=== PATIENT | male | born 1965 | race Caucasian/White ===

== ENCOUNTER 2018-10-03 09:00 | Inpatient (IN) | payer OTHER ==
[~2018-10-03] VITALS: Ht 162.6 cm; Wt 99.8 kg
[2018-10-03 10:14] LABS: EOSINOPHILS # (AUTO) 0.2 K/uL (0.0-0.7); HEMOGLOBIN 14.2 g/dL (12.5-16.3); LYMPHOCYTES # (AUTO) 0.6 K/uL (20.0-40.0); MONOCYTES # (AUTO) 0.3 K/uL (2.0-10.0); NEUTROPHILS # (AUTO) 1.2 K/uL (1.8-8.9)
[2018-10-03 10:18] LABS: BASOPHILS % (AUTO) 0.9 % (0.0-2.0); EOSINOPHILS % (AUTO) 10.3 % (0.0-7.0); HEMATOCRIT 40.1 % (36.7-47.1); LYMPHOCYTES % (AUTO) 24.6 % (20.5-51.5); MEAN CORPUSCULAR HEMOGLOBIN 33.3 uug (23.8-33.4); MEAN CORPUSCULAR HGB CONC 36 g/dL (32.5-36.3); MEAN CORPUSCULAR VOLUME 93.7 fL (73.0-96.2); MONOCYTES % (AUTO) 13.7 % (0.0-11.0); NEUTROPHILS % (AUTO) 50.5 % (38.5-71.5); RED BLOOD CELL COUNT(AUTO) 4.28 MIL/uL (4.06-5.63)
[2018-10-03 10:20] LABS: PLATELET COUNT (AUTO) 44 K/uL (152-348); WHITE BLOOD COUNT (AUTO) 2.3 K/uL (3.6-10.2)
[2018-10-03 10:22] LABS: CREATININE 0.7 mg/dL (0.6-1.3); POTASSIUM 3.9 mmol/L (3.5-5.1)
[2018-10-03 10:35] LABS: BILIRUBIN,DIRECT 0.3 mg/dL (0.0-0.2); BILIRUBIN,TOTAL 0.9 mg/dL (0.2-1.0); TOTAL PROTEIN, SERUM 6.8 g/dL (6.4-8.2)
[2018-10-03] MEDS ORDERED: FOLI1TAB16 PO (11:29)
[2018-10-03] MEDS ORDERED: CYAN10009 PO (11:29)
[2018-10-03] MEDS ORDERED: FERR325T28 PO (11:29)
[2018-10-03] MEDS ORDERED: THIA100T13 PO (11:29)
[2018-10-03] MEDS ORDERED: QUET25TA PO (11:29)
[2018-10-03] MEDS ORDERED: POLY15DR57 OP (11:29)
[2018-10-03] MEDS ORDERED: RIFA550T PO (11:29)
[2018-10-03] MEDS ORDERED: LEVE750T10 PO (11:29)
[2018-10-03] MEDS ORDERED: OMEP40CA37 PO (11:29)
[2018-10-03] MEDS ORDERED: LACT10SO PO (11:29)
[2018-10-03] MEDS ORDERED: ACET325T53 PO (11:29)
[2018-10-03] MEDS ORDERED: QUET50TA PO (11:29)
[2018-10-03] MEDS ORDERED: TAMS-3 PO (11:29)
[2018-10-03] MEDS ORDERED: CEFTRIAXONE 1 G in IV DEXTROSE 5% 50 ML IV ONE (11:30)
[2018-10-03] MEDS ORDERED: AZITHROMYCIN IV 500 MG in IV DEXTROSE 5% 250 ML IV ONE (11:30)
[2018-10-03] MEDS ORDERED: AZITHROMYCIN 500 MG VIAL IV ONE (11:46)
[2018-10-03] MEDS ORDERED: CEFTRIAXONE 1 G VIAL ONE (11:46)
[2018-10-03 11:49] LABS: *BILIRUBIN,URIN NEGATIVE (NEGATIVE); *BLOOD, URINE NEGATIVE (NEGATIVE); *CLARITY,URINE CLEAR (CLEAR); *COLOR,URINE YELLOW (YELLOW); *KETONES,URINE NEGATIVE (NEGATIVE); *UROBILINOGEN,URINE 0.2 E.U./dl (NORMAL); LEUKOCYTE ESTERASE ,URINE NEGATIVE (NEGATIVE); NITRITE, URINE NEGATIVE (NEGATIVE); UGLUCOSE NEGATIVE (NEGATIVE)
[2018-10-03 12:02] LABS: BACTERIA,URINE NONE SEEN /HPF (NONE SEEN); RBC,URINE 0-3 /HPF (0-3); SQUAMOUS EPITHELIAL CELL,UR FEW /HPF (NONE SEEN); WBC,URINE 0-3 /HPF (0-3)
[2018-10-03 12:03] LABS: MUCUS,URINE NONE SEEN /LPF (0-FEW)
[2018-10-03 12:30] LABS: BAND % (MANUAL) 2 % (0-10); EOSINOPHILS % (MANUAL) 11 % (0-8); LYMPHOCYTES % (MANUAL) 31 % (20-40); MONOCYTES % (MANUAL) 8 % (2-10); NEUTROPHILS % (MANUAL) 46 % (42-75)
[2018-10-03 12:35] LABS: REACTIVE LYMPHOCYTES 2 % (0-0)
[2018-10-03] MEDS ORDERED: ONDANSETRON 4 MG/2 ML VIAL IV PRN (13:00)
[2018-10-03] MEDS ORDERED: MAGNESIUM HYDROXIDE 30 ML LIQUID UDC PO PRN (13:00)
[2018-10-03] MEDS ORDERED: ACETAMINOPHEN 325 MG TABLET PO PRN (13:00)
[2018-10-03] MEDS ORDERED: Z GUARD REMEDY PASTE 57 GM TUBE TOP PRN (13:00)
[2018-10-03] MEDS: IV NS 1000 ML 1,000 ML IV PRN (14:01)
[2018-10-03] MEDS ORDERED: PIPERACILLIN SODIUM/TAZOBACTAM 4.5 G in IV DEXTROSE 5% 50 ML IV ONE (14:30)
[2018-10-03 16:30] VITALS: BP 123/76
[2018-10-03] MEDS: VANCOMYCIN IV 1,500 MG in IV DEXTROSE 5% 500 ML IV SCH (16:56)
[2018-10-03] MEDS: PIPERACILLIN SODIUM/TAZOBACTAM 4.5 G in IV DEXTROSE 5% 50 ML IV SCH (21:28)
[2018-10-03] MEDS ORDERED: POLYVINYL ALCOHOL OPHT DROPS 15 ML BOTTLE OP PRN (22:45)
[2018-10-03] MEDS: CYANOCOBALAMIN 1,000 MCG TABLET PO SCH (23:38)
[2018-10-03] MEDS: LEVETIRACETAM 500 MG TABLET PO SCH (23:38)
[2018-10-04] MEDS: VANCOMYCIN IV 1,500 MG in IV DEXTROSE 5% 500 ML IV SCH ×3 (01:29→21:49)
[2018-10-04] MEDS: PIPERACILLIN SODIUM/TAZOBACTAM 4.5 G in IV DEXTROSE 5% 50 ML IV SCH ×3 (05:33→23:44)
[2018-10-04 07:02] LABS: BILIRUBIN,TOTAL 1.4 mg/dL (0.2-1.0); CREATININE 0.8 mg/dL (0.6-1.3); MAGNESIUM 1.8 mg/dL (1.8-2.4); PHOSPHOROUS 3.9 mg/dL (2.5-4.9); POTASSIUM 3.3 mmol/L (3.5-5.1); TOTAL PROTEIN, SERUM 6.3 g/dL (6.4-8.2)
[2018-10-04 07:17] LABS: HEMOGLOBIN 12.9 g/dL (12.5-16.3); LYMPHOCYTES # (AUTO) 0.5 K/uL (20.0-40.0); MEAN CORPUSCULAR VOLUME 90.9 fL (73.0-96.2); MONOCYTES # (AUTO) 0.3 K/uL (2.0-10.0); NEUTROPHILS # (AUTO) 1.4 K/uL (1.8-8.9)
[2018-10-04 07:19] LABS: BASOPHILS % (AUTO) 0.6 % (0.0-2.0); EOSINOPHILS # (AUTO) 0.2 K/uL (0.0-0.7); HEMATOCRIT 35.5 % (36.7-47.1); LYMPHOCYTES % (AUTO) 21.6 % (20.5-51.5); MEAN CORPUSCULAR HGB CONC 36 g/dL (32.5-36.3); MONOCYTES % (AUTO) 10.4 % (0.0-11.0); NEUTROPHILS % (AUTO) 57.4 % (38.5-71.5); RED BLOOD CELL COUNT(AUTO) 3.91 MIL/uL (4.06-5.63); WHITE BLOOD COUNT (AUTO) 2.5 K/uL (3.6-10.2)
[2018-10-04 07:23] LABS: PLATELET COUNT (AUTO) 48 K/uL (152-348)
[2018-10-04] MEDS: FOLIC ACID 1 MG TABLET PO SCH (08:45)
[2018-10-04] MEDS: THIAMINE HCL 100 MG TABLET PO SCH ×2 (08:45→16:35)
[2018-10-04] MEDS: LACTULOSE 20 G/30 ML LIQUID UDC PO SCH ×3 (08:45→16:34)
[2018-10-04] MEDS: FERROUS SULFATE 325 MG TABEC PO SCH ×2 (08:45→16:35)
[2018-10-04] MEDS: CYANOCOBALAMIN 1,000 MCG TABLET PO SCH (08:45)
[2018-10-04] MEDS: QUETIAPINE FUMARATE 25 MG TABLET PO SCH ×2 (08:45→20:59)
[2018-10-04] MEDS: LEVETIRACETAM 500 MG TABLET PO SCH ×2 (08:45→16:34)
[2018-10-04] MEDS: RIFAXIMIN 550 MG TABLET PO SCH ×3 (09:00→16:34)
[2018-10-04 09:33] LABS: BAND % (MANUAL) 2 % (0-10); EOSINOPHILS % (MANUAL) 8 % (0-8); LYMPHOCYTES % (MANUAL) 33 % (20-40); MONOCYTES % (MANUAL) 6 % (2-10); NEUTROPHILS % (MANUAL) 50 % (42-75); REACTIVE LYMPHOCYTES 1 % (0-0)
[2018-10-04] MEDS: IV NS 1000 ML 1,000 ML IV PRN (10:42)
[2018-10-04] MEDS ORDERED: POTASSIUM CHLORIDE 20 MEQ TAB.PRT.SR PO ONE (11:15)
[2018-10-04] MEDS ORDERED: LORAZEPAM 2 MG/1 ML VIAL IV PRN (12:15)
[2018-10-04] MEDS ORDERED: LORAZEPAM 2 MG/1 ML VIAL IV ONE (12:15)
[2018-10-04 15:00] VITALS: BP 114/64
[2018-10-04 19:00] VITALS: BP 107/64
[2018-10-04] MEDS: TAMSULOSIN HCL 0.4 MG CAP.SR.24H PO SCH (20:58)
[2018-10-05 04:00] VITALS: BP 99/50
[2018-10-05] MEDS: PIPERACILLIN SODIUM/TAZOBACTAM 4.5 G in IV DEXTROSE 5% 50 ML IV SCH ×3 (05:03→21:01)
[2018-10-05] MEDS: VANCOMYCIN IV 1,500 MG in IV DEXTROSE 5% 500 ML IV SCH ×2 (06:00→17:03)
[2018-10-05 06:37] LABS: EOSINOPHILS # (AUTO) 0.2 K/uL (0.0-0.7); HEMATOCRIT 36.2 % (36.7-47.1); LYMPHOCYTES # (AUTO) 0.5 K/uL (20.0-40.0); MONOCYTES # (AUTO) 0.2 K/uL (2.0-10.0)
[2018-10-05 06:40] LABS: EOSINOPHILS % (AUTO) 9.9 % (0.0-7.0); HEMOGLOBIN 12.9 g/dL (12.5-16.3); LYMPHOCYTES % (AUTO) 27.3 % (20.5-51.5); MEAN CORPUSCULAR HEMOGLOBIN 32.4 uug (23.8-33.4); MEAN CORPUSCULAR HGB CONC 36 g/dL (32.5-36.3); MEAN CORPUSCULAR VOLUME 91.3 fL (73.0-96.2); MONOCYTES % (AUTO) 11.7 % (0.0-11.0); NEUTROPHILS % (AUTO) 50.1 % (38.5-71.5); RED BLOOD CELL COUNT(AUTO) 3.97 MIL/uL (4.06-5.63)
[2018-10-05 06:48] LABS: CREATININE 0.9 mg/dL (0.6-1.3); POTASSIUM 3.8 mmol/L (3.5-5.1)
[2018-10-05 06:57] LABS: PLATELET COUNT (AUTO) 48 K/uL (152-348); WHITE BLOOD COUNT (AUTO) 1.9 K/uL (3.6-10.2)
[2018-10-05] MEDS: LEVETIRACETAM 500 MG TABLET PO SCH ×2 (08:31→17:02)
[2018-10-05] MEDS: LACTULOSE 20 G/30 ML LIQUID UDC PO SCH ×3 (08:31→17:02)
[2018-10-05] MEDS: FERROUS SULFATE 325 MG TABEC PO SCH ×2 (08:31→17:02)
[2018-10-05] MEDS: THIAMINE HCL 100 MG TABLET PO SCH ×2 (08:32→17:02)
[2018-10-05] MEDS: QUETIAPINE FUMARATE 25 MG TABLET PO SCH ×2 (08:32→20:51)
[2018-10-05] MEDS: FOLIC ACID 1 MG TABLET PO SCH ×2 (08:32→09:00)
[2018-10-05] MEDS: CYANOCOBALAMIN 1,000 MCG TABLET PO SCH (08:34)
[2018-10-05] MEDS: RIFAXIMIN 550 MG TABLET PO SCH ×3 (09:00→17:02)
[2018-10-05 09:27] LABS: BAND % (MANUAL) 3 % (0-10); EOSINOPHILS % (MANUAL) 6 % (0-8); LYMPHOCYTES % (MANUAL) 24 % (20-40); MONOCYTES % (MANUAL) 12 % (2-10); NEUTROPHILS % (MANUAL) 55 % (42-75)
[2018-10-05] MEDS: IV NS 1000 ML 1,000 ML IV PRN (10:03)
[2018-10-05 12:00] VITALS: BP 122/77
[2018-10-05 16:00] VITALS: BP 119/61
[2018-10-05] MEDS ORDERED: TBO-FILGRASTIM 480 MCG/0.8 ML SYRINGE SQ SCH (19:15)
[2018-10-05 19:45] VITALS: BP 111/56
[2018-10-05] MEDS ORDERED: HALOPERIDOL LACTATE 5 MG/1 ML VIAL IM PRN (20:45)
[2018-10-05] MEDS: TAMSULOSIN HCL 0.4 MG CAP.SR.24H PO SCH (20:51)
[2018-10-06] MEDS: VANCOMYCIN IV 1,500 MG in IV DEXTROSE 5% 500 ML IV SCH ×3 (03:12→22:32)
[2018-10-06 04:00] VITALS: BP 102/63
[2018-10-06] MEDS: PIPERACILLIN SODIUM/TAZOBACTAM 4.5 G in IV DEXTROSE 5% 50 ML IV SCH ×3 (06:04→22:19)
[2018-10-06 06:59] LABS: EOSINOPHILS # (AUTO) 0.2 K/uL (0.0-0.7); LYMPHOCYTES # (AUTO) 0.6 K/uL (20.0-40.0); MONOCYTES # (AUTO) 0.5 K/uL (2.0-10.0)
[2018-10-06 07:01] LABS: BASOPHILS % (AUTO) 0.3 % (0.0-2.0); EOSINOPHILS % (AUTO) 1.6 % (0.0-7.0); HEMATOCRIT 37.3 % (36.7-47.1); HEMOGLOBIN 13.4 g/dL (12.5-16.3); LYMPHOCYTES % (AUTO) 5.5 % (20.5-51.5); MEAN CORPUSCULAR HEMOGLOBIN 32.6 uug (23.8-33.4); MEAN CORPUSCULAR HGB CONC 36 g/dL (32.5-36.3); MEAN CORPUSCULAR VOLUME 90.5 fL (73.0-96.2); MONOCYTES % (AUTO) 4.2 % (0.0-11.0); NEUTROPHILS # (AUTO) 10.5 K/uL (1.8-8.9); NEUTROPHILS % (AUTO) 88.4 % (38.5-71.5); RED BLOOD CELL COUNT(AUTO) 4.12 MIL/uL (4.06-5.63); WHITE BLOOD COUNT (AUTO) 11.8 K/uL (3.6-10.2)
[2018-10-06 07:07] LABS: PLATELET COUNT (AUTO) 41 K/uL (152-348)
[2018-10-06 07:14] LABS: CREATININE 0.9 mg/dL (0.6-1.3); POTASSIUM 3.5 mmol/L (3.5-5.1)
[2018-10-06 07:24] LABS: BAND % (MANUAL) 7 % (0-10); LYMPHOCYTES % (MANUAL) 9 % (20-40); MONOCYTES % (MANUAL) 6 % (2-10); NEUTROPHILS % (MANUAL) 78 % (42-75)
[2018-10-06 08:06] LABS: *IMMUNOGLOBULIN G, SERUM 937 mg/dL (700-1600); IMMUNOGLOBULIN A, SERUM 254 mg/dL (90-386); IMMUNOGLOBULIN M, SERUM 102 mg/dL (20-172)
[2018-10-06] MEDS: FOLIC ACID 1 MG TABLET PO SCH ×2 (08:33→08:35)
[2018-10-06] MEDS: CYANOCOBALAMIN 1,000 MCG TABLET PO SCH (08:33)
[2018-10-06] MEDS: RIFAXIMIN 550 MG TABLET PO SCH ×2 (08:33→16:27)
[2018-10-06] MEDS: LACTULOSE 20 G/30 ML LIQUID UDC PO SCH ×3 (08:33→16:28)
[2018-10-06] MEDS: FERROUS SULFATE 325 MG TABEC PO SCH ×2 (08:34→17:04)
[2018-10-06] MEDS: THIAMINE HCL 100 MG TABLET PO SCH ×2 (08:34→16:27)
[2018-10-06] MEDS: QUETIAPINE FUMARATE 25 MG TABLET PO SCH ×2 (08:34→20:26)
[2018-10-06] MEDS: LEVETIRACETAM 500 MG TABLET PO SCH ×2 (08:35→16:27)
[2018-10-06] MEDS ORDERED: TBO-FILGRASTIM 480 MCG/0.8 ML SYRINGE SQ SCH (09:00)
[2018-10-06 12:44] VITALS: BP 103/61
[2018-10-06] MEDS: IV NS 1000 ML 1,000 ML IV PRN (14:11)
[2018-10-06 15:09] LABS: A/G RATIO 1.3 (0.7-1.7); ALBUMIN 3.3 g/dL (2.9-4.4); ALPHA-1-GLOBULIN 0.2 g/dL (0.0-0.4); ALPHA-2-GLOBULIN 0.5 g/dL (0.4-1.0); BETA GLOBULIN 0.8 g/dL (0.7-1.3); GLOBULIN, TOTAL 2.5 g/dL (2.2-3.9); M-SPIKE Not Observed g/dL (Not Observed)
[2018-10-06 16:00] VITALS: BP 106/51
[2018-10-06 20:00] VITALS: BP 105/47
[2018-10-06] MEDS: CULTURELLE CAPSULE PO SCH (20:27)
[2018-10-06] MEDS: TAMSULOSIN HCL 0.4 MG CAP.SR.24H PO SCH (20:27)
[2018-10-07 04:00] VITALS: BP 110/54
[2018-10-07] MEDS: PIPERACILLIN SODIUM/TAZOBACTAM 4.5 G in IV DEXTROSE 5% 50 ML IV SCH ×2 (05:07→14:00)
[2018-10-07 07:30] LABS: BASOPHILS % (AUTO) 0.3 % (0.0-2.0); EOSINOPHILS # (AUTO) 0.2 K/uL (0.0-0.7); LYMPHOCYTES # (AUTO) 0.7 K/uL (20.0-40.0); MONOCYTES # (AUTO) 0.3 K/uL (2.0-10.0); NEUTROPHILS # (AUTO) 7.2 K/uL (1.8-8.9); WHITE BLOOD COUNT (AUTO) 8.4 K/uL (3.6-10.2)
[2018-10-07 07:33] LABS: EOSINOPHILS % (AUTO) 2.4 % (0.0-7.0); HEMATOCRIT 36.1 % (36.7-47.1); HEMOGLOBIN 13.1 g/dL (12.5-16.3); LYMPHOCYTES % (AUTO) 8.6 % (20.5-51.5); MEAN CORPUSCULAR HGB CONC 36 g/dL (32.5-36.3); MEAN CORPUSCULAR VOLUME 90.7 fL (73.0-96.2); MONOCYTES % (AUTO) 3.3 % (0.0-11.0); NEUTROPHILS % (AUTO) 85.4 % (38.5-71.5); RED BLOOD CELL COUNT(AUTO) 3.98 MIL/uL (4.06-5.63)
[2018-10-07 07:34] LABS: POTASSIUM 3.7 mmol/L (3.5-5.1)
[2018-10-07 07:42] LABS: PLATELET COUNT (AUTO) 40 K/uL (152-348)
[2018-10-07 08:22] LABS: BAND % (MANUAL) 5 % (0-10); LYMPHOCYTES % (MANUAL) 11 % (20-40); MONOCYTES % (MANUAL) 4 % (2-10); NEUTROPHILS % (MANUAL) 80 % (42-75)
[2018-10-07] MEDS: FOLIC ACID 1 MG TABLET PO SCH ×2 (08:27)
[2018-10-07] MEDS: LEVETIRACETAM 500 MG TABLET PO SCH (08:27)
[2018-10-07] MEDS: CYANOCOBALAMIN 1,000 MCG TABLET PO SCH (08:27)
[2018-10-07] MEDS: THIAMINE HCL 100 MG TABLET PO SCH (08:27)
[2018-10-07] MEDS: RIFAXIMIN 550 MG TABLET PO SCH (08:27)
[2018-10-07] MEDS: FERROUS SULFATE 325 MG TABEC PO SCH (08:27)
[2018-10-07] MEDS: CULTURELLE CAPSULE PO SCH (08:27)
[2018-10-07] MEDS: VANCOMYCIN IV 1,500 MG in IV DEXTROSE 5% 500 ML IV SCH (08:27)
[2018-10-07] MEDS: QUETIAPINE FUMARATE 25 MG TABLET PO SCH (08:28)
[2018-10-07] MEDS: LACTULOSE 20 G/30 ML LIQUID UDC PO SCH ×2 (08:30→12:30)
[2018-10-07 10:31] VITALS: BP 119/69
[2018-10-07] MEDS ORDERED: LEVO750T21 PO (10:57)
[2018-10-07] MEDS ORDERED: DOXY100C53 PO (10:57)
[2018-10-07 16:00] VITALS: BP 113/66
== END 2018-10-07 16:30 | DRG 279 ==
LOC: ER 09:00 → TELE 13:22 → MED 15:00
PROVIDERS: ADMIT Internal Medicine; ATTEND Internal Medicine
PROC: 05HY33Z Insertion of Infusion Device into Upper Vein, Percutaneous Approach (ICD-10-PCS; principal; 2018-10-03)
DX: K72.90 Hepatic failure, unspecified without coma (principal); J15.6 Pneumonia due to other Gram-negative bacteria; G93.41 Metabolic encephalopathy; D61.818 Other pancytopenia; J91.8 Pleural effusion in other conditions classified elsewhere; F03.90 Unspecified dementia, unspecified severity, without behavioral disturbance, psychotic disturbance, mood disturbance, and anxiety; J98.11 Atelectasis; K70.30 Alcoholic cirrhosis of liver without ascites; G40.909 Epilepsy, unspecified, not intractable, without status epilepticus; J45.909 Unspecified asthma, uncomplicated; E44.1 Mild protein-calorie malnutrition; Z68.37 Body mass index [BMI] 37.0-37.9, adult; Z79.899 Other long term (current) drug therapy; F10.21 Alcohol dependence, in remission; D73.1 Hypersplenism; F39 Unspecified mood [affective] disorder; N40.0 Benign prostatic hyperplasia without lower urinary tract symptoms; M85.80 Other specified disorders of bone density and structure, unspecified site
CPT/HCPCS: 36415; 70030-TC; 71045; 73130; 82747; 82784; 83605; 83735; 84100; 84155; 84165; 84443; 85014; 85025; 85730; 86334; 87040; 87086; 87400; 93005; 93307; A4663; G0378; J0456; J0696; J1442; J2060; J2543; J3370; J3490; J7030; J7050; J7060

== ENCOUNTER 2019-07-17 10:09 | Inpatient (IN) | payer OTHER ==
[~2019-07-17] VITALS: Ht 177.8 cm; Wt 103.9 kg
[~2019-07-17 10:09] MED LIST: ACET325T53 PO; CYAN-51 PO; DOXY100C53 PO; FERR325T28 PO; FOLI1TAB16 PO; LACT10SO PO; LEVE750T10 PO; LEVO750T21 PO; OMEP40CA13 PO; POLY15DR31 OP; QUET25TA PO; QUET50TA PO; RIFA550T PO; TAMS-3 PO; THIA100T13 PO
[2019-07-17] MEDS ORDERED: IV NORMAL SALINE 1000 ML BAG IV ONE (10:30)
[2019-07-17] MEDS ORDERED: HYDR-3326 PO (10:35)
[2019-07-17] MEDS ORDERED: ONDA4TAB5 PO (10:35)
[2019-07-17 10:57] LABS: BASOPHILS % (AUTO) 0.6 % (0.0-2.0); EOSINOPHILS # (AUTO) 0.1 K/uL (0.0-0.7); EOSINOPHILS % (AUTO) 7.9 % (0.0-7.0); HEMOGLOBIN 13.2 g/dL (12.5-16.3); LYMPHOCYTES # (AUTO) 0.4 K/uL (20.0-40.0); LYMPHOCYTES % (AUTO) 24.7 % (20.5-51.5); MEAN CORPUSCULAR HEMOGLOBIN 33.2 uug (23.8-33.4); MEAN CORPUSCULAR HGB CONC 35 g/dL (32.5-36.3); MEAN CORPUSCULAR VOLUME 95.3 fL (73.0-96.2); MONOCYTES # (AUTO) 0.1 K/uL (2.0-10.0); MONOCYTES % (AUTO) 9.5 % (0.0-11.0); NEUTROPHILS # (AUTO) 0.8 K/uL (1.8-8.9); NEUTROPHILS % (AUTO) 57.3 % (38.5-71.5); RED BLOOD CELL COUNT(AUTO) 3.98 MIL/uL (4.06-5.63)
[2019-07-17 10:58] LABS: CREATININE 0.7 mg/dL (0.6-1.3)
[2019-07-17 11:04] LABS: BILIRUBIN,DIRECT 0.4 mg/dL (0.0-0.2); BILIRUBIN,TOTAL 1.1 mg/dL (0.2-1.0); TOTAL PROTEIN, SERUM 6.3 g/dL (6.4-8.2)
[2019-07-17 11:14] LABS: PLATELET COUNT (AUTO) 31 K/uL (152-348); WHITE BLOOD COUNT (AUTO) 1.5 K/uL (3.6-10.2)
[2019-07-17 11:20] LABS: BASOPHILS % (MANUAL) 2 % (0-2); EOSINOPHILS % (MANUAL) 9 % (0-8); LYMPHOCYTES % (MANUAL) 25 % (20-40); MONOCYTES % (MANUAL) 10 % (2-10); NEUTROPHILS % (MANUAL) 54 % (42-75)
[2019-07-17] MEDS ORDERED: LACTULOSE 20 G/30 ML LIQUID UDC ONE (11:57)
[2019-07-17] MEDS ORDERED: LACTULOSE 20 G/30 ML LIQUID UDC PO ONE (12:00)
[2019-07-17 12:12] LABS: *BILIRUBIN,URIN NEGATIVE (NEGATIVE); *BLOOD, URINE NEGATIVE (NEGATIVE); *CLARITY,URINE CLEAR (CLEAR); *COLOR,URINE YELLOW (YELLOW); *KETONES,URINE NEGATIVE (NEGATIVE); *UROBILINOGEN,URINE 0.2 E.U./dl (NORMAL); LEUKOCYTE ESTERASE ,URINE NEGATIVE (NEGATIVE); NITRITE, URINE NEGATIVE (NEGATIVE); UGLUCOSE NEGATIVE (NEGATIVE)
[2019-07-17 13:25] VITALS: BP 111/55
[2019-07-17] MEDS ORDERED: HYDROCODONE/APAP 5-325MG TABLET PO PRN ×2 (14:00)
[2019-07-17] MEDS ORDERED: MAGNESIUM HYDROXIDE 30 ML LIQUID UDC PO PRN (14:00)
[2019-07-17] MEDS ORDERED: Z GUARD REMEDY PASTE 57 GM TUBE TOP PRN (14:00)
[2019-07-17] MEDS ORDERED: ONDANSETRON HCL 4 MG TABLET PO PRN (14:00)
[2019-07-17] MEDS ORDERED: ONDANSETRON 4 MG/2 ML VIAL IV PRN (14:00)
[2019-07-17] MEDS ORDERED: ZOLPIDEM 5 MG TABLET PO PRN (14:00)
[2019-07-17] MEDS ORDERED: ACETAMINOPHEN 325 MG TABLET PO PRN (14:00)
[2019-07-17] MEDS: THIAMINE HCL 100 MG TABLET PO SCH (15:43)
[2019-07-17] MEDS ORDERED: POLYVINYL ALCOHOL OPHT DROPS 15 ML BOTTLE EACHEYE PRN (15:45)
[2019-07-17 16:00] VITALS: BP 108/55
[2019-07-17 16:16] LABS: ETHANOL < 3 MG/DL (0-0)
[2019-07-17] MEDS: FERROUS SULFATE 325 MG TABEC PO SCH (17:24)
[2019-07-17] MEDS: RIFAXIMIN 550 MG TABLET PO SCH (17:24)
[2019-07-17] MEDS: IV D5 1/2 NS 1000 ML 1,000 ML IV PRN (17:25)
[2019-07-17 20:16] VITALS: BP 119/79
[2019-07-17] MEDS: LACTULOSE 20 G/30 ML LIQUID UDC PO SCH (20:28)
[2019-07-17] MEDS: LEVETIRACETAM 500 MG TABLET PO SCH (20:29)
[2019-07-17 22:59] LABS: *AMPHETAMINE, URINE NEGATIVE (NEGATIVE); *BARBITURATE, URINE NEGATIVE (NEGATIVE); *CANNABINOID, URINE NEGATIVE (NEGATIVE); *COCCAINE, URINE NEGATIVE (NEGATIVE); *OPIATE, URINE NEGATIVE (NEGATIVE); *PHENCYCLIDINE SCREEN,URINE NEGATIVE (NEGATIVE)
[2019-07-18 04:57] VITALS: BP 106/67
[2019-07-18] MEDS: PANTOPRAZOLE SODIUM 40 MG TABLET.DR PO SCH (06:29)
[2019-07-18] MEDS: LACTULOSE 20 G/30 ML LIQUID UDC PO SCH ×2 (08:58→20:38)
[2019-07-18] MEDS: FERROUS SULFATE 325 MG TABEC PO SCH ×2 (08:59→17:49)
[2019-07-18] MEDS: QUETIAPINE FUMARATE 25 MG TABLET PO SCH (08:59)
[2019-07-18] MEDS: FOLIC ACID 1 MG TABLET PO SCH (08:59)
[2019-07-18] MEDS: LEVETIRACETAM 500 MG TABLET PO SCH ×2 (08:59→20:38)
[2019-07-18] MEDS: THIAMINE HCL 100 MG TABLET PO SCH (08:59)
[2019-07-18] MEDS: RIFAXIMIN 550 MG TABLET PO SCH ×2 (09:00→17:50)
[2019-07-18] MEDS ORDERED: Medication Not On Formulary EA (Omeprazole 40 MG) PO SCH (09:00)
[2019-07-18 11:49] VITALS: BP 108/69
[2019-07-18] MEDS: IV D5 1/2 NS 1000 ML 1,000 ML IV PRN (13:05)
[2019-07-18 15:38] VITALS: BP 116/71
[2019-07-18 20:00] VITALS: BP 112/59
[2019-07-19] MEDS: IV D5 1/2 NS 1000 ML 1,000 ML IV PRN (02:45)
[2019-07-19 04:56] VITALS: BP 111/62
[2019-07-19] MEDS: PANTOPRAZOLE SODIUM 40 MG TABLET.DR PO SCH (06:10)
[2019-07-19 07:07] LABS: BILIRUBIN,TOTAL 3.5 mg/dL (0.2-1.0); CREATININE 0.7 mg/dL (0.6-1.3); MAGNESIUM 1.6 mg/dL (1.8-2.4); PHOSPHOROUS 3.4 mg/dL (2.5-4.9); POTASSIUM 3.3 mmol/L (3.5-5.1); TOTAL PROTEIN, SERUM 7.4 g/dL (6.4-8.2)
[2019-07-19 07:15] LABS: THYROID STIMULATING HORMONE 2.584 mIU/mL (0.358-3.740)
[2019-07-19 07:55] LABS: BASOPHILS % (AUTO) 1.2 % (0.0-2.0); EOSINOPHILS # (AUTO) 0.2 K/uL (0.0-0.7); EOSINOPHILS % (AUTO) 5.9 % (0.0-7.0); HEMATOCRIT 42.1 % (36.7-47.1); HEMOGLOBIN 14.6 g/dL (12.5-16.3); LYMPHOCYTES # (AUTO) 0.8 K/uL (20.0-40.0); LYMPHOCYTES % (AUTO) 19.4 % (20.5-51.5); MEAN CORPUSCULAR HEMOGLOBIN 32.9 uug (23.8-33.4); MEAN CORPUSCULAR HGB CONC 35 g/dL (32.5-36.3); MEAN CORPUSCULAR VOLUME 94.8 fL (73.0-96.2); MONOCYTES # (AUTO) 0.3 K/uL (2.0-10.0); MONOCYTES % (AUTO) 8.6 % (0.0-11.0); NEUTROPHILS # (AUTO) 2.5 K/uL (1.8-8.9); NEUTROPHILS % (AUTO) 64.9 % (38.5-71.5); RED BLOOD CELL COUNT(AUTO) 4.44 MIL/uL (4.06-5.63); WHITE BLOOD COUNT (AUTO) 3.9 K/uL (3.6-10.2)
[2019-07-19 07:58] LABS: PLATELET COUNT (AUTO) 43 K/uL (152-348)
[2019-07-19 09:21] LABS: *RHEUMATOID FACTOR SCREEN NEGATIVE (NEGATIVE)
[2019-07-19] MEDS ORDERED: POTASSIUM CHLORIDE 20 MEQ TAB.PRT.SR PO ONE (09:30)
[2019-07-19] MEDS: FOLIC ACID 1 MG TABLET PO SCH (09:31)
[2019-07-19] MEDS: THIAMINE HCL 100 MG TABLET PO SCH (09:31)
[2019-07-19] MEDS: LACTULOSE 20 G/30 ML LIQUID UDC PO SCH ×2 (09:32→21:32)
[2019-07-19] MEDS: QUETIAPINE FUMARATE 25 MG TABLET PO SCH (09:32)
[2019-07-19] MEDS: RIFAXIMIN 550 MG TABLET PO SCH ×2 (09:32→17:07)
[2019-07-19] MEDS: FERROUS SULFATE 325 MG TABEC PO SCH ×2 (09:32→17:07)
[2019-07-19] MEDS: LEVETIRACETAM 500 MG TABLET PO SCH ×2 (09:32→21:32)
[2019-07-19] MEDS: MAGNESIUM SULFATE/D5W 100 ML IV SCH ×2 (09:38→11:13)
[2019-07-19 11:30] VITALS: BP 105/54
[2019-07-19 13:30] LABS: EOSINOPHILS % (MANUAL) 5 % (0-8); LYMPHOCYTES % (MANUAL) 20 % (20-40); MONOCYTES % (MANUAL) 9 % (2-10); NEUTROPHILS % (MANUAL) 66 % (42-75)
[2019-07-19 14:47] VITALS: BP 116/67
[2019-07-19 20:41] VITALS: BP 129/79
[2019-07-20] MEDS: IV D5 1/2 NS 1000 ML 1,000 ML IV PRN (02:51)
[2019-07-20] MEDS: PANTOPRAZOLE SODIUM 40 MG TABLET.DR PO SCH (06:16)
[2019-07-20 07:58] LABS: BASOPHILS % (AUTO) 0.9 % (0.0-2.0); EOSINOPHILS # (AUTO) 0.1 K/uL (0.0-0.7); EOSINOPHILS % (AUTO) 7.5 % (0.0-7.0); HEMATOCRIT 39.1 % (36.7-47.1); HEMOGLOBIN 13.8 g/dL (12.5-16.3); LYMPHOCYTES # (AUTO) 0.5 K/uL (20.0-40.0); LYMPHOCYTES % (AUTO) 23.2 % (20.5-51.5); MEAN CORPUSCULAR HEMOGLOBIN 33.2 uug (23.8-33.4); MEAN CORPUSCULAR HGB CONC 35 g/dL (32.5-36.3); MEAN CORPUSCULAR VOLUME 94.2 fL (73.0-96.2); MONOCYTES # (AUTO) 0.2 K/uL (2.0-10.0); MONOCYTES % (AUTO) 11.3 % (0.0-11.0); NEUTROPHILS # (AUTO) 1.1 K/uL (1.8-8.9); NEUTROPHILS % (AUTO) 57.1 % (38.5-71.5); RED BLOOD CELL COUNT(AUTO) 4.15 MIL/uL (4.06-5.63)
[2019-07-20 08:06] LABS: PLATELET COUNT (AUTO) 31 K/uL (152-348)
[2019-07-20 08:07] LABS: *IMMUNOGLOBULIN G, SERUM 1147 mg/dL (700-1600); HEPATITIS B SURFACE AB Reactive (.); HEPATITIS B SURFACE AG Negative (Negative); IMMUNOGLOBULIN A, SERUM 384 mg/dL (90-386); IMMUNOGLOBULIN M, SERUM 119 mg/dL (20-172)
[2019-07-20 08:08] LABS: CREATININE 0.7 mg/dL (0.6-1.3); POTASSIUM 3.6 mmol/L (3.5-5.1)
[2019-07-20] MEDS: FERROUS SULFATE 325 MG TABEC PO SCH ×2 (08:34→17:23)
[2019-07-20] MEDS: RIFAXIMIN 550 MG TABLET PO SCH ×2 (08:34→17:23)
[2019-07-20] MEDS: QUETIAPINE FUMARATE 25 MG TABLET PO SCH (08:34)
[2019-07-20] MEDS: FOLIC ACID 1 MG TABLET PO SCH (08:34)
[2019-07-20] MEDS: THIAMINE HCL 100 MG TABLET PO SCH (08:34)
[2019-07-20] MEDS: LEVETIRACETAM 500 MG TABLET PO SCH (08:34)
[2019-07-20] MEDS: LACTULOSE 20 G/30 ML LIQUID UDC PO SCH (08:34)
[2019-07-20 11:14] LABS: BILIRUBIN,DIRECT 0.6 mg/dL (0.0-0.2); TOTAL PROTEIN, SERUM 6.7 g/dL (6.4-8.2)
[2019-07-20 11:34] VITALS: BP 137/41
[2019-07-20 12:07] LABS: *ANTI-SCLERODERMA-70 AB <0.2 AI (0.0-0.9); *SJOGREN'S ANTI-SS-A 0.2 AI (0.0-0.9); *SJOGREN'S ANTI-SS-B <0.2 AI (0.0-0.9); *SMITH ANTIBODIES <0.2 AI (0.0-0.9); ANTI-DNA(DS) AB, QN <1 IU/mL (0-9)
[2019-07-20 13:06] LABS: A/G RATIO 1.3 (0.7-1.7); ALBUMIN 3.6 g/dL (2.9-4.4); ALPHA-1-GLOBULIN 0.2 g/dL (0.0-0.4); ALPHA-2-GLOBULIN 0.5 g/dL (0.4-1.0); BETA GLOBULIN 0.9 g/dL (0.7-1.3); GAMMA GLOBULIN 1.2 g/dL (0.4-1.8); GLOBULIN, TOTAL 2.8 g/dL (2.2-3.9); M-SPIKE Not Observed g/dL (Not Observed)
[2019-07-20 16:00] VITALS: BP 122/76
[2019-07-20 20:23] VITALS: BP 125/62
== END 2019-07-20 21:17 | DRG 280 ==
LOC: ER 10:09 → MEDSURG3 13:05
PROVIDERS: ADMIT Hospitalist; ATTEND Hospitalist
DX: K70.40 Alcoholic hepatic failure without coma (principal); K70.30 Alcoholic cirrhosis of liver without ascites; D61.818 Other pancytopenia; J90 Pleural effusion, not elsewhere classified; D68.9 Coagulation defect, unspecified; D69.6 Thrombocytopenia, unspecified; E44.1 Mild protein-calorie malnutrition; E83.42 Hypomagnesemia; I67.2 Cerebral atherosclerosis; F10.10 Alcohol abuse, uncomplicated; E87.6 Hypokalemia; J45.909 Unspecified asthma, uncomplicated; G93.89 Other specified disorders of brain; G40.909 Epilepsy, unspecified, not intractable, without status epilepticus; Z68.32 Body mass index [BMI] 32.0-32.9, adult; Z79.899 Other long term (current) drug therapy; S06.9X0S Unspecified intracranial injury without loss of consciousness, sequela; X58.XXXS Exposure to other specified factors, sequela; F03.90 Unspecified dementia, unspecified severity, without behavioral disturbance, psychotic disturbance, mood disturbance, and anxiety; D73.1 Hypersplenism
CPT/HCPCS: 36415; 70030-TC; 70450; 71045; 76700; 80307; 82784; 83605; 83615; 83690; 83735; 84100; 84155; 84165; 84443; 85025; 85651; 85730; 86038; 86334; 86430; 86706; 86803; 87040; 87086; 87340; 87400; 87806; 93005; A4663; C1758; G0378; G0480; J3475; J3490; J7030; J7040

== ENCOUNTER 2022-04-14 16:39 | Inpatient (IN) | payer OTHER ==
[~2022-04-14] VITALS: Ht 182.9 cm; Wt 104.8 kg
[~2022-04-14 16:39] MED LIST changes: -ACET325T53 PO; -CYAN-51 PO; -DOXY100C53 PO; -FOLI1TAB16 PO; +FOLI1TAB94 PO; +HYDR-3326 PO; -LACT10SO PO; +LACT10SO3 PO; -LEVO750T21 PO; -OMEP40CA13 PO; +OMEP40CA21 PO; +ONDA4TAB5 PO; -QUET50TA PO; -TAMS-3 PO; -THIA100T13 PO
[2022-04-14] MEDS ORDERED: IV NORMAL SALINE 500 ML BAG IV ONE (17:15)
[2022-04-14] MEDS ORDERED: ALBUTEROL SULFATE 2.5 MG/3 ML NEBU NEB ONE (17:15)
[2022-04-14] MEDS ORDERED: IPRATROPIUM BROMIDE 0.5 MG/2.5 ML NEBU NEB ONE (17:15)
[2022-04-14] MEDS ORDERED: methylPREDNISolone SOD SUCC 125 MG/2 ML VIAL IV ONE (17:15)
[2022-04-14 17:36] LABS: HEMATOCRIT 33.7 % (36.7-47.1); MEAN CORPUSCULAR VOLUME 104.7 fL (73.0-96.2)
[2022-04-14 17:42] LABS: CARBON DIOXIDE 28 mmol/L (21-32); CHLORIDE 106 mmol/L (98-107); CREATININE 0.7 mg/dL (0.6-1.3); GLUCOSE 148 mg/dL (74-106); POTASSIUM 3.9 mmol/L (3.5-5.1); UREA NITROGEN, BLOOD 6 mg/dL (7-18)
[2022-04-14 17:48] LABS: PLATELET COUNT (AUTO) 34 K/uL (152-348)
[2022-04-14 17:50] LABS: ALANINE AMINOTRANSFERASE 27 U/L (16-63); ALKALINE PHOSPHATASE 97 U/L (50-136); ASPARTATE AMINOTRANSFERASE 51 U/L (15-37); BILIRUBIN,DIRECT 5.3 mg/dL (0.0-0.2); BILIRUBIN,TOTAL 13.7 mg/dL (0.2-1.0); TOTAL PROTEIN, SERUM 6.5 g/dL (6.4-8.2)
[2022-04-14] MEDS ORDERED: ACET-2154 PO (18:11)
[2022-04-14] MEDS ORDERED: CALC1TAB95 PO (18:11)
[2022-04-14] MEDS ORDERED: POTA10CA43 PO (18:11)
[2022-04-14] MEDS ORDERED: CYAN-51 PO (18:11)
[2022-04-14] MEDS ORDERED: CA C1TAB71 PO (18:11)
[2022-04-14] MEDS ORDERED: QUET25TA PO (18:11)
[2022-04-14] MEDS ORDERED: BENZ1TAB7 PO (18:11)
--- NOTE | 2022-04-14 18:39 | NUR ---
PT IS IN ROOM #2B. DR FRAGOSO EVALUATED THE PT.
--- NOTE | 2022-04-14 18:42 | NUR ---
MIDDLE LINE INSERTION WAS ORDERED , NURSING A[facility] OPERATIONS STAFF OFFICER TIFFANY WAS NOTIFIED.
[2022-04-14] MEDS ORDERED: HALOPERIDOL LACTATE 5 MG/1 ML VIAL IM ONE (19:00)
--- NOTE | 2022-04-14 19:15 | NUR ---
received report from Augustus JOHNSTON
--- NOTE | 2022-04-14 20:05 | NUR ---
called for bed. Spoke with charge nurse Nicci JOHNSTON. Will call me back
[2022-04-14] MEDS ORDERED: ONDANSETRON 4 MG/2 ML VIAL IV PRN (20:30)
[2022-04-14] MEDS ORDERED: HYDROCODONE/APAP 5-325MG TABLET PO PRN (20:30)
[2022-04-14] MEDS ORDERED: TEMAZEPAM 15 MG CAPSULE PO PRN (20:30)
[2022-04-14] MEDS ORDERED: QUETIAPINE FUMARATE 25 MG TABLET PO SCH (21:00)
--- NOTE | 2022-04-14 21:14 | NUR ---
Report given to Navneet JOHNSTON
--- NOTE | 2022-04-14 21:25 | NUR ---
Admitted patient in Med surg floor under the care of Dr murphy, Patient awake but confused, speak Polish. Patient has jaundice, left arm weakness, multiple bruise on left upper arm, large purple on right upper arm, an abrasion on left lower leg, and bruise on left posterior leg, patient uncooperative with care, kicks and curses at the staff, needs 4 people to hold patient before care can be given, patient combative and hostile towards the staff when given care. kept comfortable.
--- NOTE | 2022-04-14 21:40 | NUR ---
Jake JOHNSTON accompanied by security transfered patient to med/surg
[2022-04-14 21:50] VITALS: BP 107/60
--- NOTE | 2022-04-14 21:56 | NUR ---
Pt. admitted to med/surg room 315 , under care of Dr. Whyte Belongs List completed Parth RN aware of patient's arrival
[2022-04-14] MEDS ORDERED: POLYVINYL ALCOHOL OPHT DROPS 15 ML BOTTLE OP PRN (22:30)
--- NOTE | 2022-04-14 22:41 | NUR ---
Patient awake,non verbal resistive with care, kick staff when giving care, and combative. Staff cannot do body check, change soiled linen, kicking and tries to punch staff, notify Dr. Whyte with order.
[2022-04-14] MEDS ORDERED: LORAZEPAM 2 MG/1 ML VIAL IV PRN (22:45)
[2022-04-14] MEDS ORDERED: HALOPERIDOL LACTATE 5 MG/1 ML VIAL IM PRN (22:45)
[2022-04-14] MEDS: levETIRAcetam 250 MG TABLET PO SCH (23:24)
--- NOTE | 2022-04-14 23:50 | NUR ---
Patient awake, staff unable to give medications patient still kicking staff, unable to comprehend instructions, iv ns not given, unable to insert iv lines, patient combative, and moving a lot, MD aware.
--- NOTE | 2022-04-14 23:52 | NUR ---
Patient given Haldol 5mg IM for severe agitations, no adverse reaction noted, cont to monitor.
[2022-04-15 04:00] VITALS: BP 113/58
--- NOTE | 2022-04-15 04:36 | NUR ---
Patient awake combative, kicks and tries to hit staff, needs 3 to 4 people before care can be given, offered food and water but refused, rendered good skin care. cont to monitor.
[2022-04-15] MEDS ORDERED: POLYVINYL ALCOHOL OPHT DROPS 15 ML BOTTLE EACHEYE PRN (05:45)
[2022-04-15] MEDS: PANTOPRAZOLE SODIUM 40 MG TABLET.DR PO SCH (06:20)
[2022-04-15 06:35] LABS: NEUTROPHILS % (MANUAL) 0 % (42-75)
[2022-04-15 07:05] LABS: HEMATOCRIT 30.2 % (36.7-47.1); MEAN CORPUSCULAR HEMOGLOBIN 37.8 uug (23.8-33.4); MEAN CORPUSCULAR VOLUME 104.1 fL (73.0-96.2)
[2022-04-15 07:12] LABS: BILIRUBIN,TOTAL 13.3 mg/dL (0.2-1.0); CREATININE 0.7 mg/dL (0.6-1.3); MAGNESIUM 1.5 mg/dL (1.8-2.4); PHOSPHOROUS 3.9 mg/dL (2.5-4.9); POTASSIUM 3.7 mmol/L (3.5-5.1); TOTAL PROTEIN, SERUM 6.2 g/dL (6.4-8.2)
[2022-04-15 07:29] LABS: THYROID STIMULATING HORMONE 1.852 mIU/mL (0.358-3.740)
[2022-04-15 08:02] LABS: PLATELET COUNT (AUTO) 27 K/uL (152-348)
--- NOTE | 2022-04-15 08:09 | NUR ---
critical lab reported by lab, platelet 27 critical low. notified.
[2022-04-15] MEDS: CYANOCOBALAMIN 1,000 MCG TABLET PO SCH (08:40)
[2022-04-15] MEDS: BENZTROPINE MESYLATE 1 MG TABLET PO SCH (08:40)
[2022-04-15] MEDS: levETIRAcetam 250 MG TABLET PO SCH ×2 (08:40→20:19)
[2022-04-15] MEDS: FOLIC ACID 1 MG TABLET PO SCH (08:41)
[2022-04-15] MEDS: LACTULOSE 20 G/30 ML LIQUID UDC PO SCH ×4 (08:41→20:18)
[2022-04-15] MEDS: QUETIAPINE FUMARATE 25 MG TABLET PO SCH ×3 (08:41→20:20)
[2022-04-15] MEDS ORDERED: MAGNESIUM OXIDE 400 MG TABLET PO ONE (09:15)
[2022-04-15] MEDS ORDERED: MAGNESIUM SULFATE/D5W 100 ML IV SCH (09:15)
[2022-04-15 12:00] VITALS: BP 125/63
[2022-04-15] MEDS ORDERED: CHOL-35 PO (15:48)
[2022-04-15 16:40] VITALS: BP 135/79
--- NOTE | 2022-04-15 18:38 | NUR ---
Pt is a/o x 1, awakes with touch, confused and lao speaking. Pt still combative and uncooperative with care. Soft restraints in place. Comfort measures provided,c all light within reach. Will endorse.
--- NOTE | 2022-04-15 19:00 | NUR ---
Received pt in no acute distress. Iv intact. Safety and comfort provided. Will continue to monitor.
[2022-04-15 20:00] VITALS: BP 130/77
--- NOTE | 2022-04-15 21:30 | NUR ---
Pt given [place] 5-325 mg prn at 2020H for pain. Pt has facial grimace . Pt restless and mumbling. After an hour pt pain medication effective as evidence by pt calmer and no facial grimace noted. Will continue to monitor.
[2022-04-16] MEDS: PANTOPRAZOLE SODIUM 40 MG TABLET.DR PO SCH (06:05)
--- NOTE | 2022-04-16 06:13 | NUR ---
Pt in no acute distress. Pt prescribed medication given and pt tolerated it well. Pt still combative and uncooperative with care. Soft restraints in place. Pt on room air. Pt confused.Safety and comfort provided. Pt turned and repositioned. Rendered good skin care. All needs are met. . Will endorse to incoming nurse for continuity of care.
[2022-04-16 06:31] LABS: HEMATOCRIT 32.5 % (36.7-47.1); MEAN CORPUSCULAR HEMOGLOBIN 37.2 uug (23.8-33.4); MEAN CORPUSCULAR VOLUME 104.5 fL (73.0-96.2)
[2022-04-16 06:47] LABS: CARBON DIOXIDE 31 mmol/L (21-32); CHLORIDE 108 mmol/L (98-107); CREATININE 0.5 mg/dL (0.6-1.3); GLUCOSE 107 mg/dL (74-106); MAGNESIUM 1.5 mg/dL (1.8-2.4); POTASSIUM 3.7 mmol/L (3.5-5.1); UREA NITROGEN, BLOOD 5 mg/dL (7-18)
[2022-04-16 07:30] LABS: PLATELET COUNT (AUTO) 25 K/uL (152-348)
[2022-04-16] MEDS: LACTULOSE 20 G/30 ML LIQUID UDC PO SCH ×4 (08:20→21:00)
[2022-04-16] MEDS: QUETIAPINE FUMARATE 25 MG TABLET PO SCH ×2 (08:20→16:02)
[2022-04-16] MEDS: BENZTROPINE MESYLATE 1 MG TABLET PO SCH (08:20)
[2022-04-16] MEDS: FOLIC ACID 1 MG TABLET PO SCH (08:20)
[2022-04-16] MEDS: CYANOCOBALAMIN 1,000 MCG TABLET PO SCH (08:20)
[2022-04-16] MEDS: levETIRAcetam 250 MG TABLET PO SCH (08:24)
[2022-04-16] MEDS ORDERED: MAGNESIUM OXIDE 400 MG TABLET PO ONE ×2 (09:15→12:00)
[2022-04-16] MEDS: PROTEIN SUPPLEMENT (PROSTAT) 30 ML LIQUID PO SCH ×2 (09:43→16:02)
[2022-04-16 11:56] VITALS: BP 145/56
[2022-04-16 16:18] VITALS: BP 138/61
--- NOTE | 2022-04-16 18:26 | NUR ---
Patient received care well throughout shift with no signs of pain or distress. Patient combative when bathing patient. Soft restraints in place to be renewed at 0542 04/17/22. Will endorse information to PM nurse. Bed left in lowest position with call light within reach. Comfort measures provided. Will endorse information to PM nurse.
[2022-04-16 20:00] VITALS: BP 133/76
--- NOTE | 2022-04-17 00:39 | NUR ---
PT DESATS DURING BED BATH GIVEN BY RN TELEHEALTH. o2sat 87. RAISED THE HOB AND PT O2SAT IS 94, HR 104. RESP IS LABORED, 16 AND SHOWS BREATHING ABDOMINAL. O2 PLACED AT 2L NC. DR FORTE NOTIFIED VIA TEXT. WILL CONTINUE TO MONITOR .
[2022-04-17] MEDS ORDERED: INSULIN REGULAR, HUMAN 300 UNITS/3 ML VIAL SQ PRN (01:00)
[2022-04-17] MEDS ORDERED: DEXTROSE 50% 50 ML DISP.SYRIN IV PRN (01:00)
[2022-04-17] MEDS: levETIRAcetam 250 MG TABLET PO SCH ×3 (01:20→21:15)
[2022-04-17] MEDS: QUETIAPINE FUMARATE 25 MG TABLET PO SCH ×4 (01:26→21:14)
--- NOTE | 2022-04-17 01:27 | NUR ---
bp 141/91/ o2sat on 2l NC 98. RESTRAINT REMOVED PT IS WEAK AND HAS NOT ATTEMPTED TO GET OOB.
--- NOTE | 2022-04-17 01:56 | NUR ---
PT IS AWAKE AND IS TRYING TO GET OOB. FREQUENT OBSERVATIONB. SPEECH INCOMPREHENSIBLE. PT OD=FFERED AND TOOK SIPS OF FLUID HOB 45, SAFETY PRECAUTION IN PLACE, BED IS IN LOWEST POSITION. SIDE RAILS UP X 4. PT UNABLE TO COMMUNICATE. TOOK LACTULISE AND KEPPRA AFTER FULLY AWAKE, RESP IS UNLABORED. `
--- NOTE | 2022-04-17 02:00 | NUR ---
rEAPPLY RESTRAINT ON R WRIST. PATIENT ATTEMPTING TO SLIDE OUT OF BED AND HIS AT STAFF DURING SKIN CARE. PT IS CONFUSED. SKIN JAUNDICE AND SAFETY MAINTAINED PICC LINE IN INTACT AND PATIENT.
[2022-04-17 04:00] VITALS: BP 130/71
[2022-04-17 06:55] LABS: HEMATOCRIT 33.5 % (36.7-47.1); MEAN CORPUSCULAR HEMOGLOBIN 37.2 uug (23.8-33.4)
--- NOTE | 2022-04-17 07:22 | NUR ---
HANDS OFF CARE OF PATIENT. PT IS ASLEEP IN NO DISTRESS. V/S NOTED IS WNL. HOB 30. PT HAD 2 LOOSE STOOL THIS SHIFT AND REMAINS JAUNDICE. REPORT ENDORSED TO AM PRESTON.
[2022-04-17 07:23] LABS: PLATELET COUNT (AUTO) 31 K/uL (152-348)
[2022-04-17 07:30] LABS: CARBON DIOXIDE 30 mmol/L (21-32); CHLORIDE 108 mmol/L (98-107); CREATININE 0.6 mg/dL (0.6-1.3); GLUCOSE 104 mg/dL (74-106); MAGNESIUM 1.8 mg/dL (1.8-2.4); PHOSPHOROUS 4.4 mg/dL (2.5-4.9); UREA NITROGEN, BLOOD 6 mg/dL (7-18)
[2022-04-17] MEDS: BLOOD SUGAR DIAGNOSTIC 1 EACH STRIP VI SCH ×4 (07:31→21:14)
[2022-04-17] MEDS: CYANOCOBALAMIN 1,000 MCG TABLET PO SCH (08:45)
[2022-04-17] MEDS: BENZTROPINE MESYLATE 1 MG TABLET PO SCH (08:45)
[2022-04-17] MEDS: FOLIC ACID 1 MG TABLET PO SCH (08:45)
[2022-04-17] MEDS: LACTULOSE 20 G/30 ML LIQUID UDC PO SCH ×4 (08:46→21:13)
[2022-04-17] MEDS: PROTEIN SUPPLEMENT (PROSTAT) 30 ML LIQUID PO SCH ×2 (08:46→16:15)
[2022-04-17 11:55] VITALS: BP 116/67
--- NOTE | 2022-04-17 12:29 | NUR ---
Patient spitting food/medication when given. Lactulose not given due to patient spitting out medication.
[2022-04-17] MEDS: INSULIN REGULAR, HUMAN 300 UNIT/3 ML VIAL SQ PRN (16:17)
[2022-04-17 17:11] VITALS: BP 111/48
--- NOTE | 2022-04-17 18:39 | NUR ---
Patient tolerating care well throughout shift. Restraints still required due to patient continuously attempting to kick and grab when providing care for patient such as changing of sheets, and providing ADL's. Patient for possible discharge tomorrow after patient receives oncology consult. Spoke to Dr. Rowe, and will consult patient later this evening. Will endorse information to PM nurse. Bed left in lowest position. Comfort measures provided.
[2022-04-17 20:00] VITALS: BP 136/64
--- NOTE | 2022-04-17 22:15 | NUR ---
Patient in bed awake .Confused. HOB elevated .O2 at 2LPM via NC .No s/s of distress noted.Soft Restraints in place.Monitor for skin breakdown and circulation.Due meds given crushed with apple sauce. Tolerated well. Midline patent and intact on right upper arm.Seizure precaution implemented.Continue safety measures. Will continue to monitor.
[2022-04-18 04:32] VITALS: BP 132/63
[2022-04-18 06:46] LABS: HEMATOCRIT 32.5 % (36.7-47.1); MEAN CORPUSCULAR HEMOGLOBIN 36.9 uug (23.8-33.4)
[2022-04-18] MEDS: BLOOD SUGAR DIAGNOSTIC 1 EACH STRIP VI SCH ×2 (06:49→11:37)
[2022-04-18 06:55] LABS: PLATELET COUNT (AUTO) 28 K/uL (152-348)
--- NOTE | 2022-04-18 07:39 | NUR ---
Relayed platelet result to Gogo Borja.No new order at this time. Endorsed to incoming shift.
[2022-04-18 07:59] LABS: ALANINE AMINOTRANSFERASE 31 U/L (16-63); ALKALINE PHOSPHATASE 88 U/L (50-136); ASPARTATE AMINOTRANSFERASE 73 U/L (15-37); BILIRUBIN,TOTAL 12.8 mg/dL (0.2-1.0); CARBON DIOXIDE 28 mmol/L (21-32); CHLORIDE 107 mmol/L (98-107); CREATININE 0.6 mg/dL (0.6-1.3); GLUCOSE 116 mg/dL (74-106); POTASSIUM 3.5 mmol/L (3.5-5.1); TOTAL PROTEIN, SERUM 6.2 g/dL (6.4-8.2); UREA NITROGEN, BLOOD 8 mg/dL (7-18)
[2022-04-18 08:41] LABS: *RHEUMATOID FACTOR SCREEN NEGATIVE (NEGATIVE)
[2022-04-18] MEDS: CYANOCOBALAMIN 1,000 MCG TABLET PO SCH (08:53)
[2022-04-18] MEDS: levETIRAcetam 250 MG TABLET PO SCH (08:53)
[2022-04-18] MEDS: LACTULOSE 20 G/30 ML LIQUID UDC PO SCH ×2 (08:53→13:06)
[2022-04-18] MEDS: BENZTROPINE MESYLATE 1 MG TABLET PO SCH (08:53)
[2022-04-18] MEDS: QUETIAPINE FUMARATE 25 MG TABLET PO SCH (08:54)
[2022-04-18] MEDS: FOLIC ACID 1 MG TABLET PO SCH (08:54)
[2022-04-18] MEDS: PROTEIN SUPPLEMENT (PROSTAT) 30 ML LIQUID PO SCH (08:54)
[2022-04-18 12:24] VITALS: BP 143/69
--- NOTE | 2022-04-18 13:00 | NUR ---
Evonne Borja DNP in the unit, informed DNP regarding abnormal lab results done today, and per her it's OK to discharge patient to SNF and will just need to follow up with sánchez-onco at SNF. Also DNP ordered to discontinue midline prior to discharge to [facility].
[2022-04-18] MEDS: INSULIN REGULAR, HUMAN 300 UNIT/3 ML VIAL SQ PRN (13:08)
--- NOTE | 2022-04-18 14:25 | NUR ---
Patient discharged to [facility], transferred via gurney, picked up by [facility]. Patient is awake, non-verbal, vital signs stable, on 2LPM via nasal cannula. No signs or symptoms of acute distress. Right upper arm midline discontinued as ordered with no noted bleeding. Report [facility] Kaitlin JOHNST[facility]
[2022-04-19 08:06] LABS: *IMMUNOGLOBULIN G, SERUM 1596 mg/dL (603-1613); IMMUNOGLOBULIN A, SERUM 617 mg/dL (90-386); IMMUNOGLOBULIN M, SERUM 101 mg/dL (20-172)
[2022-04-20 08:06] LABS: *ANTI-SCLERODERMA-70 AB <0.2 AI (0.0-0.9); *SJOGREN'S ANTI-SS-A 0.8 AI (0.0-0.9); *SJOGREN'S ANTI-SS-B <0.2 AI (0.0-0.9); *SMITH ANTIBODIES <0.2 AI (0.0-0.9); ANTI-DNA(DS) AB, QN <1 IU/mL (0-9)
[2022-04-20 12:06] LABS: ALPHA-1-GLOBULIN 0.2 g/dL (0.0-0.4); ALPHA-2-GLOBULIN 0.5 g/dL (0.4-1.0); BETA GLOBULIN 0.7 g/dL (0.7-1.3); GAMMA GLOBULIN 1.6 g/dL (0.4-1.8); GLOBULIN, TOTAL 2.9 g/dL (2.2-3.9); M-SPIKE Not Observed g/dL (Not Observed)
== END 2022-04-18 13:25 | DRG 279 ==
LOC: ER 16:39 → MEDSURG3 21:25
PROVIDERS: ADMIT Internal Medicine; ATTEND Nurse Practitioner Acute Care
PROC: 05H933Z Insertion of Infusion Device into Right Brachial Vein, Percutaneous Approach (ICD-10-PCS; principal; 2022-04-15)
DX: K72.90 Hepatic failure, unspecified without coma (principal); I85.11 Secondary esophageal varices with bleeding; D61.818 Other pancytopenia; E44.0 Moderate protein-calorie malnutrition; J45.901 Unspecified asthma with (acute) exacerbation; D68.4 Acquired coagulation factor deficiency; D53.1 Other megaloblastic anemias, not elsewhere classified; R16.1 Splenomegaly, not elsewhere classified; K70.30 Alcoholic cirrhosis of liver without ascites; F10.97 Alcohol use, unspecified with alcohol-induced persisting dementia; F20.9 Schizophrenia, unspecified; G40.909 Epilepsy, unspecified, not intractable, without status epilepticus; M47.892 Other spondylosis, cervical region; E11.9 Type 2 diabetes mellitus without complications; R45.1 Restlessness and agitation; H74.8X2 Other specified disorders of left middle ear and mastoid; M43.12 Spondylolisthesis, cervical region; Z79.899 Other long term (current) drug therapy; G31.9 Degenerative disease of nervous system, unspecified; Z91.81 History of falling; G93.89 Other specified disorders of brain
CPT/HCPCS: 36415; 70030-TC; 70450; 71045; 72125; 76705; 82747; 82784; 83550; 83735; 84100; 84155; 84165; 84443; 84484; 85014; 85025; 85610; 85651; 86038; 86334; 86430; 93005; 97161; A4663; A6209; A6213; G0378; J1630; J1815; J3590; J7040